=== PATIENT | female | born 1945 | race Caucasian/White ===

== ENCOUNTER → 2017-09-16 | Outpatient (CLI) | payer OTHER, BC ==
[~2017-09-16] MED LIST: BENADRYL25 MG PO; COLACE100 MG PO; HYDROCODONE-CH473 ML PO; NORCO 5-325 TA1 EACH PO; PERCOCET 5-3251 EACH PO; PHENERGAN 25 MG25 M1 PO; PROZAC; SENNA S TABLET1 EACH PO; TUSSIONEX PENN473 ML PO; VICODIN 5-5001 EACH PO
== END ==
LOC: BC 10:00 → NUC 10:00
DX: Z12.31 Encounter for screening mammogram for malignant neoplasm of breast (principal); E66.9 Obesity, unspecified; Z78.0 Asymptomatic menopausal state

== ENCOUNTER → 2018-11-21 | Outpatient (CLI) | payer OTHER, BC | LOC: RAD 01:52 | DX: Z12.31 Encounter for screening mammogram for malignant neoplasm of breast (principal) ==